=== PATIENT | female | born 1985 | race Caucasian/White ===

== ENCOUNTER 2017-10-22 08:19 | Inpatient (IN) | payer OTHER ==
[2017-10-22] VITALS (23 sets, daily range): BP systolic 101–157; BP diastolic 69–96; PULSE 74–96; RESP 14–18; TEMP 98.1–98.7
[~2017-10-22] VITALS: Ht 152.4 cm; Wt 74.0 kg
[2017-10-22] MEDS ORDERED: LACTATED RINGER'S 1000 ML INJ 1,000 ML IV PRN (08:56)
[2017-10-22] MEDS ORDERED: SODIUM CHLORID 0.9% 500 ML INJ 500 ML IV PRN (09:00)
[2017-10-22] MEDS ORDERED: LIDOCAINE HCL 1% 50 ML VIAL INFIL PRN (09:00)
[2017-10-22] MEDS ORDERED: MINERAL OIL 10 ML VIAL TOPICAL PRN (09:00)
[2017-10-22] MEDS ORDERED: OXYTOCIN 30 UNITS-500ML PREMIX 500 ML IV ONE (09:00)
[2017-10-22] MEDS ORDERED: CITRIC ACID-SODIUM CITRATE LIQ 30 ML UDC PO SCH (09:00)
[2017-10-22] MEDS ORDERED: LIDOCAINE HCL 1% 50 ML VIAL I-DERMAL PRN (09:00)
[2017-10-22] MEDS ORDERED: MISOPROSTOL 100 MCG TAB VAGINAL ONE (09:15)
[2017-10-22] MEDS ORDERED: SODIUM CHLORIDE 0.9% FLUSH 10 ML FLUSH IV FLUSH PRN (09:15)
[2017-10-22] MEDS ORDERED: SODIUM CHLOR 0.9% 1000 ML INJ 1,000 ML IV PRN (09:16)
[2017-10-22] MEDS ORDERED: MISOPROSTOL 25 MCG TAB VAGINAL ONE ×2 (09:45→14:00)
[2017-10-22 09:52] LABS: BACTERIA, URINE RARE /hpf; BILIRUBIN, URINE NEG (NEG); BLOOD, URINE SMALL (NEG); GLUCOSE,URINE NEG (NEG); KETONE, URINE 10 mg/dL (NEG); NITRITE,URINE NEG (NEG); PH, URINE 6.5 (5.0-8.5); SQUAMOUS EPITHELIAL CELL URINE 3 /hpf (0-5); URINE COLOR YELLOW (YELLW/STRAW); URINE LEUKOCYTE ESTERASE MOD (NEG)
[2017-10-22 09:55] LABS: AUTOMATED NEUTROPHIL # 6.6 TH/MM3 (1.8-7.7); BASOPHIL % 0.4 % (0.0-2.0); EOSINOPHIL # 0.1 TH/MM3 (0-0.4); HEMATOCRIT 38.1 % (35.0-46.0); HEMOGLOBIN 12.7 GM/DL (11.6-15.3); LYMPHOCYTE # 1.6 TH/MM3 (1.0-4.8); MEAN CELL VOLUME 83.6 FL (80.0-100.0); MEAN CORPUSCULAR HEMOGLOBIN 27.8 PG (27.0-34.0); MEAN CORPUSCULAR HGB CONC 33.2 % (32.0-36.0); MEAN PLATELET VOLUME 9.9 FL (7.0-11.0); MONO % 9.7 % (0.0-8.0); MONOCYTE # 0.9 TH/MM3 (0-0.9); NEUT % 71.9 % (16.0-70.0); PLATELET COUNT 201 TH/MM3 (150-450); RED BLOOD COUNT 4.55 MIL/MM3 (4.00-5.30); RED CELL DISTRIBUTION WIDTH 16.6 % (11.6-17.2); WHITE BLOOD COUNT 9.2 TH/MM3 (4.0-11.0)
[2017-10-22] MEDS: LACTATED RINGER'S 1000 ML INJ 1,000 ML IV SCH ×2 (11:16→17:57)
[2017-10-22] MEDS: FAMOTIDINE 20 MG TAB PO SCH ×2 (14:19→21:31)
--- NOTE | 2017-10-22 17:54 | HHI.HP ---
HPI Chief Complaint Here for induction 40 4/7 weeks Date Seen: October 22, 2017 Time Seen: 09:00 Travel History International Travel<30 Days: No Contact w/Intl Traveler<30Days: No Known Affected Area: No History of Present Illness HPI 32 yo WF here for induction at 40 4/7 weeks, Cervix ft dilated and ok with cytotec Weeks Gestation: 40 Para: 0 : 1 History Past Medical History Medical History: Denies Significant Hx Past Surgical History Surgical History: No Previous Surgery Social History Alcohol Use: No Tobacco Use: No Substance Abuse: No Allergies-Medications (Allergen,Severity, Reaction): Coded Allergies: No Known Allergies (Unverified , 10/22/17) Review of Systems Except as stated in HPI: all other systems reviewed are Neg Physical Exam Vital Signs Date Time Temp Pulse Resp B/P (MAP) Pulse Ox O2 Delivery O2 Flow Rate FiO2 10/22/17 15:31 76 124/91 (102) 10/22/17 15:30 98.7 10/22/17 15:30 98.7 18 10/22/17 15:30 18 10/22/17 13:47 80 101/82 (88) 10/22/17 11:01 74 130/83 (99) 10/22/17 09:02 88 133/88 (103) Narrative GENERAL: Well-nourished, well-developed patient. SKIN: Warm and dry. HEAD: Normocephalic and atraumatic. EYES: No scleral icterus. No injection or drainage. ENT: No nasal drainage noted. Mucous membranes pink. Airway patent. NECK: Supple, trachea midline. No JVD. CARDIOVASCULAR: Regular rate and rhythm without murmurs, gallops, or rubs. RESPIRATORY: Breath sounds equal bilaterally. No accessory muscle use. BREASTS: Bilateral exam showed no masses , no retractions, no nipple discharge. ABDOMEN/GI: Abdomen soft, non-tender, bowel sounds present, no rebound, no guarding Gravid to 40 weeks size Fundal Height: [-] GENITOURINARY: External Genitalia: intact and normal in appearance BUS glands: [-] Cervix: [-] Dilatation: ft Effacement: 60 Station: -2 Presentation: vtx Membranes: intact Uterine Contractions: [-] FHT's: Category: 1 Baseline: [-] Reactive: [-] Variability: [-] Decels: [-] EXTREMITIES: No cyanosis or edema. BACK: Nontender without obvious deformity. No CVA tenderness. NEUROLOGICAL: Awake and alert. Motor and sensory grossly within normal limits. Five out of 5 muscle strength in all muscle groups. Normal speech. Caprini VTE Risk Assessment Caprini VTE Risk Assessment: No/Low Risk (score <= 1) Caprini Risk Assessment Model Point Value = 1 Point Value = 2 Point Value = 3 Point Value = 5 Age 41-60 Minor surgery BMI > 25 kg/m2 Swollen legs Varicose veins or History of unexplained or recurrent spontaneous Oral contraceptives or hormone replacement Sepsis (< 1 month) Serious lung disease, including pneumonia (< 1 month) Abnormal pulmonary function Acute myocardial infarction Congestive heart failure (< 1 month) History of inflammatory bowel disease Medical patient at bed rest Age 61-74 Arthroscopic surgery Major open surgery (> 45 min) Laparoscopic surgery (> 45 min) Malignancy Confined to bed (> 72 hours) Immobilizing plaster cast Central venous access Age >= 75 History of VTE Family history of VTE Factor V Leiden Prothrombin [id number] Lupus anticoagulant Anticardiolipin antibodies Elevated serum homocysteine Heparin-induced thrombocytopenia Other congenital or acquired thrombophilia Stroke (< 1 month) Elective arthroplasty Hip, pelvis, or leg fracture Acute spinal cord injury (< 1 month) Prophylaxis Regimen Total Risk Factor Score Risk Level Prophylaxis Regimen 0-1 Low Early ambulation 2 Moderate Order ONE of the following: *Sequential Compression Device (SCD) *Heparin 5000 units SQ BID 3-4 Higher Order ONE of the following medications: *Heparin 5000 units SQ TID *Enoxaparin/Lovenox 40 mg SQ daily (WT < 150 kg, CrCl > 30 mL/min) *Enoxaparin/Lovenox 30 mg SQ daily (WT < 150 kg, CrCl > 10-29 mL/min) *Enoxaparin/Lovenox 30 mg SQ BID (WT < 150 kg, CrCl > 30 mL/min) AND/OR *Sequential Compression Device (SCD) 5 or more Highest Order ONE of the following medications: *Heparin 5000 units SQ TID (Preferred with Epidurals) *Enoxaparin/Lovenox 40 mg SQ daily (WT < 150 kg, CrCl > 30 mL/min) *Enoxaparin/Lovenox 30 mg SQ daily (WT < 150 kg, CrCl > 10-29 mL/min) *Enoxaparin/Lovenox 30 mg SQ BID (WT < 150 kg, CrCl > 30 mL/min) AND *Sequential Compression Device (SCD) Data Data Vital Signs Reviewed: Yes Orders Orders Admit To Inpatient (10/22/17 ) Code Status (10/22/17 08:56) Vital Signs (Adult) .Per protocol (10/22/17 08:56) Heart (10/22/17 08:56) Amnioinfusion (10/22/17 08:56) Urinary Catheter Management .ONCE (10/22/17 08:56) Lactated Ringer's 1000 Ml Inj (Lr 1000 M (10/22/17 08:56) Lactated Ringer's 1000 Ml Inj (Lr 1000 M (10/22/17 08:56) Sodium Chlorid 0.9% 500 Ml Inj (Ns 500 M (10/22/17 09:00) Sodium Chlor 0.9% 1000 Ml Inj (Ns 1000 M (10/22/17 09:16) Lidocaine 1% Inj (50 Ml) (Xylocaine 1% I (10/22/17 09:00) Citric Acid-Sodium Citrate Liq (Bicitra (10/22/17 09:00) Fentanyl Inj (Fentanyl Inj) (10/22/17 09:00) Fentanyl Inj (Fentanyl Inj) (10/22/17 09:00) Complete Blood Count With Diff (10/22/17 08:56) Hold Clot (10/22/17 08:56) Abo/Rh Blood Type (10/22/17 08:56) Urinalysis - C+S If Indicated (10/22/17 08:56) Ob/Psych Drug Screen, Urine (10/22/17 08:56) Resp Oxygen Non Rebreathe Mask (10/22/17 ) ^ Epidural / Intrathecal Infus (10/22/17 08:56) Oxytocin 30 Units-500ml Premix (Pitocin (10/22/17 09:00) Lidocaine 1% Inj (50 Ml) (Xylocaine 1% I (10/22/17 09:00) Light Mineral Oil (Muri-Lube Oil) (10/22/17 09:00) Inpatient Certification (10/22/17 ) Specimen To Be Collected PRN (10/22/17 08:56) Specimen To Be Collected PRN (10/22/17 08:56) ^ Labor Induction (10/22/17 09:04) ^ Vaginal Insert (10/22/17 09:04) ^ Vaginal Lavage (10/22/17 09:04) Heart (10/22/17 09:04) Misoprostol (Cytotec) (10/22/17 09:15) Sodium Chloride 0.9% Flush (Ns Flush) (10/22/17 21:00) Sodium Chloride 0.9% Flush (Ns Flush) (10/22/17 09:15) Diet Clear Liquid (10/22/17 Breakfast) Famotidine (Pepcid) (10/22/17 14:15) Misoprostol (Cytotec) (10/22/17 09:45) Heart (10/22/17 11:14) Misoprostol (Cytotec) (10/22/17 14:00) Group B Strep: Negative Labs Laboratory Tests Test 10/22/17 08:50 White Blood Count 9.2 Red Blood Count 4.55 Hemoglobin 12.7 Hematocrit 38.1 Mean Corpuscular Volume 83.6 Mean Corpuscular Hemoglobin 27.8 Mean Corpuscular Hemoglobin Concent 33.2 Red Cell Distribution Width 16.6 Platelet Count 201 Mean Platelet Volume 9.9 Neutrophils (%) (Auto) 71.9 Lymphocytes (%) (Auto) 17.0 Monocytes (%) (Auto) 9.7 Eosinophils (%) (Auto) 1.0 Basophils (%) (Auto) 0.4 Neutrophils # (Auto) 6.6 Lymphocytes # (Auto) 1.6 Monocytes # (Auto) 0.9 Eosinophils # (Auto) 0.1 Basophils # (Auto) 0.0 CBC Comment DIFF FINAL Differential Comment Urine Color YELLOW Urine Turbidity CLEAR Urine pH 6.5 Urine Specific [place] 1.020 Urine Protein TRACE Urine Glucose (UA) NEG Urine Ketones 10 Urine Occult Blood SMALL Urine Nitrite NEG Urine Bilirubin NEG Urine Urobilinogen LESS THAN 2.0 Urine Leukocyte Esterase MOD Urine RBC 1 Urine WBC 4 Urine Squamous Epithelial Cells 3 Urine Bacteria RARE Microscopic Urinalysis Comment CULT NOT INDICATED Urine Opiates Screen NEG Urine Barbiturates Screen NEG Urine Amphetamines Screen NEG Urine Benzodiazepines Screen NEG Urine Cocaine Screen NEG Urine Cannabinoids Screen NEG Assessment/Plan Problem List: (1) 40 weeks gestation of ICD Codes: Z3A.40 - 40 weeks gestation of Assessment and Plan cervical ripening with cytotec Rusty Arauz MD October 22, 2017 17:54
--- NOTE | 2017-10-22 17:57 | PD.LABORPN ---
Subjective Subjective doing well some pain on dosing of cytotec x2 Objective Vital Signs Vital Signs Date Time Temp Pulse Resp B/P (MAP) Pulse Ox O2 Delivery O2 Flow Rate FiO2 10/22/17 15:31 76 124/91 (102) 10/22/17 15:30 98.7 10/22/17 15:30 98.7 18 10/22/17 15:30 18 10/22/17 13:47 80 101/82 (88) 10/22/17 11:01 74 130/83 (99) Objective Pelvic Exam: Cervix: [-] Dilatation: 3 Effacement: 80 Station: [-] Presentation:vtx Membranes: AROM Uterine Contractions: q3 FHT's: Category: 1 Baseline: [-] Reactive: [-] Variability: [-] Decels: [-] Weeks Gestation: 40 Gest Age Assessed Date: October 22, 2017 Gest Age Assessed Time: 09:00 Pt started active labor?: Yes Active labor start date: October 22, 2017 Active labor start time: 09:00 Artificial rupture of membrane: Yes Artificial ROM date: October 22, 2017 Artifical ROM time: 17:45 Assessment/Plan Problem List: (1) 40 weeks gestation of ICD Codes: Z3A.40 - 40 weeks gestation of Plan: start Rusty Childs MD October 22, 2017 17:56
[2017-10-22] MEDS ORDERED: OXYTOCIN 30 UNITS-500ML PREMIX 500 ML IV PRN (18:00)
[2017-10-22] MEDS: SODIUM CHLORIDE 0.9% FLUSH 10 ML FLUSH IV FLUSH SCH (19:56)
[2017-10-22] MEDS ORDERED: LIDOCAINE HCL 1% PF 30 ML VIAL ONE (20:06)
[2017-10-22] MEDS ORDERED: LIDOCAINE 1%/EPINEPHrine 1:100,000 SOLN 30 ML VIAL ONE (20:06)
[2017-10-22] MEDS ORDERED: LIDOCAINE 1.5%/EPINEPHrine 1:200,000 PF SOLN 30 ML AMP ONE (20:10)
[2017-10-22] MEDS ORDERED: fentaNYL 2MCG-BUPIV 0.125% INJ 100 ML ONE (20:29)
[2017-10-22] MEDS ORDERED: NO SYSTEM NARCOTICS PRN (22:00)
[2017-10-22] MEDS ORDERED: DO NOT ADMINISTER ANTICOAGULANTS PRN (22:00)
[2017-10-22] MEDS ORDERED: ePHEDrine/NS 25 MG/5 ML SYRINGE IV PUSH PRN (22:00)
[2017-10-22] MEDS: fentaNYL 2MCG-BUPIV 0.125% 150 ML EPIDURAL PRN (22:18)
[2017-10-23] VITALS (28 sets, daily range): BP systolic 108–140; BP diastolic 68–94; PULSE 71–99; RESP 15–18; TEMP 98–99.4; O2SAT 97–100
[2017-10-23] MEDS ORDERED: fentaNYL 2MCG-BUPIV 0.125% INJ 100 ML ONE ×2 (02:44→08:14)
[2017-10-23] MEDS: LACTATED RINGER'S 1000 ML INJ 1,000 ML IV SCH ×3 (02:53→19:20)
[2017-10-23] MEDS: fentaNYL 2MCG-BUPIV 0.125% 150 ML EPIDURAL PRN (02:53)
--- NOTE | 2017-10-23 07:50 | PD.LABORPN ---
Subjective Subjective doing well Objective Vital Signs Vital Signs Date Time Temp Pulse Resp B/P (MAP) Pulse Ox O2 Delivery O2 Flow Rate FiO2 10/23/17 07:30 88 140/94 (109) 10/23/17 07:00 87 123/80 (94) 10/23/17 06:00 90 127/83 (98) 10/23/17 05:51 98.3 15 10/23/17 05:30 94 133/94 (107) 10/23/17 04:00 91 132/92 (105) 10/23/17 03:30 98.1 15 10/23/17 03:00 84 131/86 (101) 10/23/17 02:30 81 116/78 (91) 10/23/17 01:30 83 121/79 (93) 10/23/17 01:16 98.3 10/23/17 00:30 79 121/80 (94) Objective Pelvic Exam: Cervix: [-] Dilatation: 8 Effacement: 100 Station: [-] Presentation: vtx Membranes: ruptured Uterine Contractions: [-] FHT's: Category: 1 Baseline: [-] Reactive: [-] Variability: [-] Decels: [-] Weeks Gestation: 40 Gest Age Assessed Date: October 22, 2017 Gest Age Assessed Time: 09:00 Pt started active labor?: Yes Active labor start date: October 22, 2017 Active labor start time: 09:00 Artificial rupture of membrane: Yes Artificial ROM date: October 22, 2017 Artifical ROM time: 17:45 Assessment/Plan Problem List: (1) 40 weeks gestation of ICD Codes: Z3A.40 - 40 weeks gestation of Plan: start Rusty Childs MD October 23, 2017 07:50
[2017-10-23] MEDS: FAMOTIDINE 20 MG TAB PO SCH ×2 (07:53→19:12)
[2017-10-23] MEDS: SODIUM CHLORIDE 0.9% FLUSH 10 ML FLUSH IV FLUSH SCH ×2 (09:00→19:58)
[2017-10-23] MEDS ORDERED: ONDANSETRON HCL 4 MG/2 ML VIAL ONE (10:49)
[2017-10-23] MEDS ORDERED: LIDOCAINE HCL 1% PF 5 ML SYRINGE OTHER ONE (12:00)
[2017-10-23] MEDS ORDERED: ceFAZolin INJ 1,000 MG VIAL IV ONE (12:00)
[2017-10-23] MEDS ORDERED: LACTATED RINGER'S 1000 ML INJ 1,000 ML IV ONE ×2 (12:00→12:59)
[2017-10-23] MEDS ORDERED: LIDOCAINE HCL 2% PF 10 ML VIAL IV ONE (12:00)
[2017-10-23] MEDS ORDERED: KETOROLAC TROMETHAMINE 30 MG/ML (IVP) VIAL IV PUSH ONE (12:00)
[2017-10-23] MEDS ORDERED: PHENYLEPH/NS 1000 MCG/10 ML SYR IV ONE (12:00)
[2017-10-23] MEDS ORDERED: DEXAMETHASONE SOD PHOS 4 MG/ML VIAL IV ONE (12:00)
[2017-10-23] MEDS ORDERED: ONDANSETRON HCL 4 MG/2 ML VIAL IV ONE (12:00)
[2017-10-23] MEDS ORDERED: OXYTOCIN 10 UNIT/ML AMP IV ONE (12:00)
[2017-10-23] MEDS ORDERED: ONDANSETRON HCL 4 MG/2 ML VIAL IV PUSH ONE (12:30)
--- NOTE | 2017-10-23 12:58 | PD.LABORPN ---
Subjective Subjective despite adequate contractions patient did not progress past 9 cm Arrest of dilatation Objective Vital Signs Vital Signs Date Time Temp Pulse Resp B/P (MAP) Pulse Ox O2 Delivery O2 Flow Rate FiO2 10/23/17 12:27 99.4 10/23/17 12:00 99 130/85 (100) 10/23/17 11:30 96 127/94 (105) 10/23/17 11:30 18 10/23/17 11:00 94 108/74 (85) 10/23/17 10:53 18 10/23/17 10:06 98.6 10/23/17 10:01 97 137/89 (105) 10/23/17 10:00 98.6 18 10/23/17 09:30 90 140/90 (107) 10/23/17 08:57 15 10/23/17 08:57 99.0 10/23/17 08:23 17 10/23/17 07:30 88 140/94 (109) 10/23/17 07:00 87 123/80 (94) 10/23/17 06:00 90 127/83 (98) 10/23/17 05:51 98.3 15 10/23/17 05:30 94 133/94 (107) Objective Pelvic Exam: Cervix: [-] Dilatation: 9 Effacement: [-] Station: [-] Presentation: [-] Membranes: [intact or ruptured] Uterine Contractions: [-] FHT's: Category: 1 Baseline: [-] Reactive: [-] Variability: [-] Decels: [-] Weeks Gestation: 40 Gest Age Assessed Date: October 22, 2017 Gest Age Assessed Time: 09:00 Pt started active labor?: Yes Active labor start date: October 22, 2017 Active labor start time: 09:00 Artificial rupture of membrane: Yes Artificial ROM date: October 22, 2017 Artifical ROM time: 17:45 Assessment/Plan Problem List: (1) 40 weeks gestation of ICD Codes: Z3A.40 - 40 weeks gestation of Plan: start pit Assessment and Plan arrest of dilatation patient counselled for CS Rusty Arauz MD October 23, 2017 12:58
--- NOTE | 2017-10-23 13:01 | HHI.DCPOC ---
Discharge Care Plan Diagnosis: (1) delivery delivered Report Symptoms to Your Doctor -Temperature above 100.5 degrees -Redness, of incision or excessive or foul smelling drainage -Unusual pain or calf pain -Increased vaginal bleeding -Painful or difficulty urinating -Feelings of extreme sadness or anxiety after 2 weeks Goals to Promote Your Health * To prevent worsening of your condition and complications * To maintain your health at the optimal level Directions to Meet Your Goals Take your medications as prescribed Follow your dietary instruction Follow activity as directed Ensure plenty of rest for recovery Drink fluids for hydration Keep your appointments as scheduled Take your immunizations and boosters as scheduled If your symptoms worsen call your PCP, if no PCP go to Urgent Care Center or Emergency Room Smoking is Dangerous to Your Health. Avoid second hand smoke Call the 24-hour crisis hotline for domestic abuse at Rusty Arauz MD October 23, 2017 13:01
[2017-10-23] MEDS ORDERED: EPIDURAL-DO NOT ADMINISTER ANTICOAGULANTS PRN (13:20)
[2017-10-23] MEDS ORDERED: EPIDURAL-NALOXONE HCL 0.4 MG/ML AMP IV PUSH PRN (13:20)
[2017-10-23] MEDS ORDERED: EPIDURAL-NO SYSTEMIC NARCOTICS PRN (13:20)
[2017-10-23] MEDS ORDERED: EPIDURAL-DIPHENHYDRAMINE HCL 50 MG/ML VIAL IV PUSH PRN (13:20)
[2017-10-23] MEDS ORDERED: EPIDURAL-DIPHENHYDRAMINE HCL 50 MG CAP PO PRN (13:20)
[2017-10-23] MEDS ORDERED: ACETAMINOPHEN 1000 MG/100 ML 100 ML IV ONE (13:26)
[2017-10-23] MEDS ORDERED: LACTATED RINGER'S 1000 ML INJ 1,000 ML IV SCH (13:29)
[2017-10-23] MEDS ORDERED: ceFAZolin 2 GM PREMIX 50 ML IV SCH (14:00)
--- NOTE | 2017-10-23 14:17 | PD.OB.DELI ---
Procedure Note Section Procedure Pre Op Diagnosis: (1) delivery delivered Post Op Diagnosis: Performed by Rusty Arauz Procedure: Primary Low Transverse Sec Indication for delivery: malposition Informed consent obtained: For anesthesia, For procedure Confirmed correct: Patient, Procedure, Time-out taken Anesthesia: Epidural Monitoring during procedure: Blood pressure monitoring Urinary catheter: To dependent drainage Sterile preparation: Duraprep Position: Supine with wedge to left side Operative Features Skin Incision: Pfannenstiel Uterine Incision: Low transverse w/knife / blunt ext Presentation: Occiput anterior Delivery date: October 23, 2017 Delivery time: 13:44 Delivery of : Uneventful Infant: Male, Single One Minute : 8 Five Minute : 9 Weight: 7# 6 oz Status of infant: Viable Placenta delivered: Intact Estimated blood loss: 500 Procedure tolerated: Well Maternal Condition: Stable Condition: Stable Rusty Arauz MD October 23, 2017 14:17
[2017-10-23] MEDS ORDERED: SIMETHICONE 80 MG CHEWABLE TAB PO PRN (14:30)
[2017-10-23] MEDS ORDERED: KETOROLAC TROMETHAMINE 60 MG/2 ML (IM) VIAL IM PRN (14:30)
[2017-10-23] MEDS ORDERED: OXYTOCIN 30 UNITS-500ML PREMIX 500 ML IV ONE (14:30)
[2017-10-23] MEDS ORDERED: CITRIC ACID-SODIUM CITRATE LIQ 30 ML UDC PO SCH (14:30)
[2017-10-23] MEDS ORDERED: SODIUM CHLORIDE 0.9% FLUSH 10 ML FLUSH IV FLUSH PRN (14:30)
--- NOTE | 2017-10-23 14:39 | MP ---
cc: Rusty Arauz MD DATE OF OPERATION: 10/23/2017 DATE OF PROCEDURE: 10/23/2017 PROCEDURE PERFORMED: Primary low transverse section. PREOPERATIVE DIAGNOSIS: Arrest of dilatation 9 cm. POSTOPERATIVE DIAGNOSIS: Arrest of dilatation 9 cm. SURGEON: Rusty Arauz MD ESTIMATED BLOOD LOSS: 500 mL. COMPLICATIONS: None. FINDINGS: Live male , Apgars of 8 and 9, OT presentation. ANESTHESIA: Epidural, Dr. Salcido. PROCEDURE IN DETAIL: After informed consent, the patient taken to the operating room where she was placed under epidural anesthesia, was placed in supine position left lateral tilt. Abdomen, perineum and vagina were prepped and draped in the normal sterile fashion. Timeout was taken. Once adequate anesthesia was assured and timeout was agreed to, a Pfannenstiel skin incision was carried sharply through the skin to the fascia. The fascia was nicked in the midline and the incision was extended laterally using Cervantes scissors. Rectus muscle in the midline. The peritoneum was bluntly entered with the finger, the incision extended laterally using blunt traction. Bladder blade was placed in the abdomen and bladder flap was created by dissecting the bladder off the lower uterine segment. Bladder blade was replaced to protect the bladder and a low transverse uterine incision was then made, carried sharply to the uterine cavity. Clear fluid was noted. The uterine incision was then opened in a low transverse type. Blunt traction was used to extend the incision. Meconium stained fluid was noted and a hand was placed into the uterus. The infant was noted to be OT. The 's head was brought through the incision and using fundal pressure, the infant's head and shoulders delivered. Nose and mouth suctioned well. Cord was clamped and cut after 45 seconds. The patient was taken to the recovery room in stable condition. Lap and instrument counts were reported as correct. The uterine incision was closed with running locking stitch. Uterus was hemostatic. The peritoneum was closed with Vicryl suture. The fascia was closed with Vicryl suture, and the skin was closed with subcuticular stitch. Each layer was noted to be hemostatic prior to closure and the patient tolerated the procedure well. MD WES Woodruff/DANYEL , 02:20 PM , 02:37 PM
[2017-10-23] MEDS ORDERED: DO NOT ADM ANY ANTICOAGULANT DRUGS PRN (15:42)
[2017-10-23] MEDS ORDERED: ONDANSETRON HCL 4 MG/2 ML VIAL IV PUSH PRN (18:00)
[2017-10-23] MEDS ORDERED: OXYTOCIN 30 UNITS-500ML PREMIX 500 ML IV PRN (19:30)
[2017-10-23] MEDS: IBUPROFEN 600 MG TAB PO PRN (21:27)
[2017-10-23] MEDS: oxyCODONE/ACETAMINOPHEN 5 MG/325 MG TAB PO PRN (21:44)
[2017-10-24] VITALS: BP 118/67; PULSE 72; RESP 18; TEMP 98.1; O2SAT 99
[2017-10-24] MEDS: LACTATED RINGER'S 1000 ML INJ 1,000 ML IV SCH (02:38)
[2017-10-24] MEDS: oxyCODONE/ACETAMINOPHEN 5 MG/325 MG TAB PO PRN ×4 (04:20→20:33)
[2017-10-24] MEDS: IBUPROFEN 600 MG TAB PO PRN ×3 (04:20→19:46)
[2017-10-24 08:18] LABS: AUTOMATED NEUTROPHIL # 12.5 TH/MM3 (1.8-7.7); BASOPHIL % 0.1 % (0.0-2.0); EOSINOPHIL % 0.2 % (0.0-4.0); HEMATOCRIT 29.6 % (35.0-46.0); HEMOGLOBIN 9.9 GM/DL (11.6-15.3); LYMPH % 9.6 % (9.0-44.0); LYMPHOCYTE # 1.5 TH/MM3 (1.0-4.8); MEAN CELL VOLUME 84.1 FL (80.0-100.0); MEAN CORPUSCULAR HGB CONC 33.3 % (32.0-36.0); MEAN PLATELET VOLUME 9.1 FL (7.0-11.0); MONO % 8.5 % (0.0-8.0); MONOCYTE # 1.3 TH/MM3 (0-0.9); NEUT % 81.6 % (16.0-70.0); PLATELET COUNT 173 TH/MM3 (150-450); RED BLOOD COUNT 3.52 MIL/MM3 (4.00-5.30); WHITE BLOOD COUNT 15.3 TH/MM3 (4.0-11.0)
[2017-10-24] MEDS: FAMOTIDINE 20 MG TAB PO SCH ×2 (10:33→19:46)
--- NOTE | 2017-10-24 12:53 | HHI.OB ---
Subjective Post Operative Day: 1 Remarks Pt doing well, tolerating po, good pain management, ambulating well, breast feeding going alright Objective Vitals/I&O Vital Signs Date Time Temp Pulse Resp B/P (MAP) Pulse Ox O2 Delivery O2 Flow Rate FiO2 10/24/17 00:00 98.1 18 99 10/24/17 00:00 72 118/67 (84) 10/23/17 20:00 98.3 71 18 134/78 (96) 99 10/23/17 16:00 98.0 97 10/23/17 15:15 98 10/23/17 15:15 98.7 10/23/17 15:00 92 18 129/74 (92) 100 10/23/17 14:30 100 10/23/17 14:30 91 18 122/84 (97) 10/23/17 14:15 98.2 100 10/23/17 14:15 89 18 115/68 (84) Result Diagram: 10/24/17 0801 Objective Remarks GENERAL: Well-nourished, well-developed patient. CARDIOVASCULAR: Regular rate and rhythm without murmurs, gallops, or rubs. RESPIRATORY: Breath sounds equal bilaterally. No accessory muscle use. ABDOMEN/GI: Abdomen soft, non-tender, bowel sounds present. Incision: Clean, dry and intact. Fundus: Firm, non-tender at umbilicus. GENITOURINARY: Light to moderate bleeding. EXTREMITIES: No cyanosis or edema, non-tender, without signs of DVT. Medications and IVs Current Medications Medications (Trade) Dose Ordered Sig/Ester Route Start Time Stop Time Status Last Admin (Pepcid) 20 mg BID PO 10/22/17 14:15 10/24/17 10:33 Lactated Ringer's 1,000 ml @ 100 mls/hr Q10H IV 10/23/17 19:20 10/24/17 15:19 Oxytocin 500 ml @ 100 mls/hr UNSCH X1 PRN IV 10/23/17 19:30 10/24/17 19:29 (NS Flush) 2 ml BID IV FLUSH 10/23/17 21:00 (NS Flush) 2 ml UNSCH PRN IV FLUSH 10/23/17 14:30 (Mylicon Chew) 80 mg QID PRN PO 5/4/18 14:30 (Motrin) 600 mg Q6H PRN PO 10/23/17 14:30 10/24/17 10:33 (Toradol Inj) 30 mg Q6H PRN IM 10/23/17 14:30 10/24/17 14:29 (Percocet 5-325 Mg) 1 tab Q4H PRN PO 10/23/17 14:30 10/24/17 10:34 (Percocet 5-325 Mg) 2 tab Q4H PRN PO 10/23/17 14:30 10/24/17 04:20 (M-M-R Ii Inj) 0.5 ml ONCE ONCE SQ 10/24/17 16:00 10/24/17 16:01 (Boostrix Inj) 0.5 ml ONCE ONCE IM 10/24/17 16:00 10/24/17 16:01 10/24/17 04:21 Assessment/Plan Problem List: (1) 40 weeks gestation of ICD Codes: Z3A.40 - 40 weeks gestation of Plan: start pit Assessment and Plan POD # 1 s/p primary c/s due to arrest of labor doing well, routine care Monique Roberts MD October 24, 2017 12:53
[2017-10-24] MEDS ORDERED: DIPHTH/TETANUS/ACEL PERTUSSIS (BOOSTER) 0.5 ML VIAL/PFS IM ONE (16:00)
[2017-10-24] MEDS ORDERED: MEASLES, MUMPS, RUBELLA VACCINE 0.5 ML VIAL SQ ONE (16:00)
[2017-10-24 19:50] VITALS: BP 122/72; PULSE 96; RESP 20; TEMP 97.8
[2017-10-25] MEDS: IBUPROFEN 600 MG TAB PO PRN ×4 (01:47→20:52)
[2017-10-25] MEDS: oxyCODONE/ACETAMINOPHEN 5 MG/325 MG TAB PO PRN ×4 (01:47→20:52)
[2017-10-25 08:40] VITALS: BP 120/78; PULSE 91; RESP 18; TEMP 98
[2017-10-25] MEDS: FAMOTIDINE 20 MG TAB PO SCH ×2 (09:00→20:53)
[2017-10-25] MEDS: SODIUM CHLORIDE 0.9% FLUSH 10 ML FLUSH IV FLUSH SCH (09:00)
--- NOTE | 2017-10-25 13:34 | HHI.OB ---
Subjective Post Operative Day: 2 Remarks Pt doing well with pain control, ambulating, tolerating po Objective Vitals/I&O Vital Signs Date Time Temp Pulse Resp B/P (MAP) Pulse Ox O2 Delivery O2 Flow Rate FiO2 10/25/17 08:40 98.0 18 10/25/17 08:40 91 120/78 (92) 10/24/17 19:50 122/72 (89) 10/24/17 19:50 97.8 96 20 Result Diagram: 10/24/17 0801 Objective Remarks GENERAL: Well-nourished, well-developed patient. CARDIOVASCULAR: Regular rate and rhythm without murmurs, gallops, or rubs. RESPIRATORY: Breath sounds equal bilaterally. No accessory muscle use. ABDOMEN/GI: Abdomen soft, non-tender, bowel sounds present. Incision: Clean, dry and intact. Fundus: Firm, non-tender at umbilicus. GENITOURINARY: Light to moderate bleeding. EXTREMITIES: No cyanosis or edema, non-tender, without signs of DVT. Medications and IVs Current Medications Medications (Trade) Dose Ordered Sig/Ester Route Start Time Stop Time Status Last Admin (Pepcid) 20 mg BID PO 10/22/17 14:15 10/24/17 19:46 (NS Flush) 2 ml BID IV FLUSH 10/23/17 21:00 (NS Flush) 2 ml UNSCH PRN IV FLUSH 10/23/17 14:30 (Mylicon Chew) 80 mg QID PRN PO 10/23/17 14:30 (Motrin) 600 mg Q6H PRN PO 10/23/17 14:30 10/25/17 08:52 (Percocet 5-325 Mg) 1 tab Q4H PRN PO 10/23/17 14:30 10/25/17 08:53 (Percocet 5-325 Mg) 2 tab Q4H PRN PO 10/23/17 14:30 10/25/17 01:47 Assessment/Plan Problem List: (1) 40 weeks gestation of ICD Codes: Z3A.40 - 40 weeks gestation of Plan: start pit Assessment and Plan POD # 2 s/p primary c/s due to arrest of labor doing well, routine care Monique Roberts MD October 25, 2017 13:34
[2017-10-25 20:30] VITALS: TEMP 98
[2017-10-26] MEDS: oxyCODONE/ACETAMINOPHEN 5 MG/325 MG TAB PO PRN ×3 (03:15→16:34)
[2017-10-26] MEDS: IBUPROFEN 600 MG TAB PO PRN ×3 (03:15→16:34)
[2017-10-26 07:54] VITALS: BP 112/85; PULSE 90; RESP 20; TEMP 98.2
--- NOTE | 2017-10-26 08:29 | HHI.OB ---
Subjective Post Day: 3 Remarks doing well Objective Vitals/I&O Vital Signs Date Time Temp Pulse Resp B/P (MAP) Pulse Ox O2 Delivery O2 Flow Rate FiO2 10/26/17 07:54 98.2 90 20 112/85 (94) 10/25/17 20:30 98.0 10/25/17 08:40 98.0 18 10/25/17 08:40 91 120/78 (92) Objective Remarks GENERAL: Well-nourished, well-developed patient. ABDOMEN/GI: Abdomen soft, non-tender. Fundus: Firm, non-tender at umbilicus. GENITOURINARY: Light to moderate bleeding. EXTREMITIES: No cyanosis or edema, non-tender, without signs of DVT. Medications and IVs Current Medications Medications (Trade) Dose Ordered Sig/Ester Route Start Time Stop Time Status Last Admin (Pepcid) 20 mg BID PO 10/22/17 14:15 10/24/17 19:46 (NS Flush) 2 ml BID IV FLUSH 10/23/17 21:00 (NS Flush) 2 ml UNSCH PRN IV FLUSH 10/23/17 14:30 (Mylicon Chew) 80 mg QID PRN PO 10/23/17 14:30 (Motrin) 600 mg Q6H PRN PO 10/23/17 14:30 10/26/17 03:15 (Percocet 5-325 Mg) 1 tab Q4H PRN PO 10/23/17 14:30 10/26/17 03:15 (Percocet 5-325 Mg) 2 tab Q4H PRN PO 10/23/17 14:30 10/25/17 01:47 Assessment/Plan Problem List: (1) 40 weeks gestation of ICD Codes: Z3A.40 - 40 weeks gestation of Plan: start pit Assessment and Plan POD # 3 s/p primary c/s DC home today Rusty Arauz MD October 26, 2017 08:29
[2017-10-26] MEDS ORDERED: OXYC1TAB63 PO (08:30)
--- NOTE | 2017-10-26 08:31 | HHI.DS ---
Admission Date October 22, 2017 at 08:19 Discharge Date: October 26, 2017 Admitting Diagnosis Diagnosis: (1) delivery delivered ICD Codes: O82 - Encounter for delivery without indication Delivery Date: October 23, 2017 : Primary Infant: Male, Single Brief History 32 yo WF here for induction at 40 4/7 weeks, Cervix ft dilated and ok with cytotec Hospital Course post CS day 3 ready for DC home. Arrest of dilatation Pt Condition on Discharge: Good Discharge Disposition: Discharge Home Discharge Instructions Diet Instructions: As Tolerated, No Restrictions Activities You Can Perform: Pelvic Rest Activities to Avoid: Driving for 24 hrs Follow up Referrals: [facility] - 2 Weeks @ [facility] with Rusty Arauz MD New Medications: Oxycodone HCl/Acetaminophen (Oxycodone-Acetaminophen 5-325) 5 Mg-325 Mg Tablet 2 TAB PO Q4H PRN for PAIN SCALE 6 TO 10, #30 TAB Rusty Arauz MD October 26, 2017 08:31
== END 2017-10-26 17:48 | disposition home or self-care (01) | DRG 766 ==
LOC: H2EB 08:19 → H1EA 10-23 15:40
PROVIDERS: ADMIT Obstetrics & Gynecology; ATTEND Obstetrics & Gynecology
PROC: 3E0P7VZ Introduction of Hormone into Female Reproductive, Via Natural or Artificial Opening (ICD-10-PCS; 2017-10-22)
PROC: 10907ZC Drainage of Amniotic Fluid, Therapeutic from Products of Conception, Via Natural or Artificial Opening (ICD-10-PCS; 2017-10-22)
PROC: 10D00Z1 Extraction of Products of Conception, Low, Open Approach (ICD-10-PCS; principal; 2017-10-23)
DX: O62.0 Primary inadequate contractions (principal); O77.0 Labor and delivery complicated by meconium in amniotic fluid; Z37.0 Single live birth; Z3A.40 40 weeks gestation of pregnancy
CPT/HCPCS: 59025; 80307; 81001; 85025; 86850; 86900; 86901; 90715; G0481; J0131; J0690; J1100; J1885; J2370; J2405; J2590; J3010; J7120